=== PATIENT | female | born 1995 | race Caucasian/White ===

== ENCOUNTER 2020-08-26 06:12 | Day surgery (SDC) | payer OTHER ==
[~2020-08-26] VITALS: Ht 167.6 cm; Wt 81.6 kg
[2020-08-26] MEDS ORDERED: MIDAZOLAM 5 MG/5 ML VIAL ONE (07:55)
[2020-08-26] MEDS ORDERED: fentaNYL citrate 0.05 MG/ML VIAL ONE (07:55)
[2020-08-26] MEDS ORDERED: MIDAZOLAM 2 MG/2 ML VIAL IVP ONE (09:10)
== END 2020-08-26 09:20 | disposition home or self-care (01) ==
LOC: MDS 06:12 → MMU 06:13 → MDS 09:20
PROVIDERS: ATTEND Internal Medicine Gastroenterology
DX: R10.13 Epigastric pain (principal); K21.9 Gastro-esophageal reflux disease without esophagitis; K29.70 Gastritis, unspecified, without bleeding
CPT/HCPCS: 36415; 43239; 81025; 86677; J2250; J3010